=== PATIENT | female | born 1945 | race Two or more races ===

== ENCOUNTER 2017-10-25 08:55 | Outpatient (CLI) | payer MEDICARE, MEDICAID ==
[2017-10-25] MEDS ORDERED: ETHYL CHLORIDE SPRAY 1 EA BOTTLE TP ONE (10:30)
[2017-10-25] MEDS ORDERED: PHENOL TP ONE (10:30)
== END 2017-10-25 23:59 | disposition home or self-care (01) ==
LOC: WOU 08:55
PROVIDERS: ATTEND Podiatrist Foot & Ankle Surgery
DX: L60.0 Ingrowing nail (principal); M79.671 Pain in right foot; L60.3 Nail dystrophy; Z96.653 Presence of artificial knee joint, bilateral
CPT/HCPCS: 11750; A6402 ×2; J3490; Z7610

== ENCOUNTER 2017-10-26 10:14 | Outpatient (CLI) | payer MEDICARE, MEDICAID | END 2017-10-26 23:59 | disposition home or self-care (01) | LOC: RAD 10:14 | PROVIDERS: ATTEND Podiatrist Foot & Ankle Surgery | DX: M21.6X1 Other acquired deformities of right foot (principal); M19.071 Primary osteoarthritis, right ankle and foot | CPT/HCPCS: 73630-TC ==

== ENCOUNTER 2017-11-01 10:59 | Outpatient (CLI) | payer MEDICARE, MEDICAID | END 2017-11-01 23:59 | disposition home or self-care (01) | LOC: WOU 10:59 | PROVIDERS: ATTEND Podiatrist Foot & Ankle Surgery | DX: Z09 Encounter for follow-up examination after completed treatment for conditions other than malignant neoplasm (principal); L60.3 Nail dystrophy; M79.671 Pain in right foot | CPT/HCPCS: A6402; G0463; Z7610 ==

== ENCOUNTER 2017-11-01 11:52 | Outpatient (CLI) | payer MEDICARE, MEDICAID | END 2017-11-01 23:59 | disposition home or self-care (01) | LOC: WOU 11:52 | PROVIDERS: ATTEND Podiatrist Foot & Ankle Surgery | DX: L60.3 Nail dystrophy (principal); M19.071 Primary osteoarthritis, right ankle and foot; M79.671 Pain in right foot; Z96.653 Presence of artificial knee joint, bilateral | CPT/HCPCS: G0463 ==

== ENCOUNTER 2017-11-02 09:46 | Outpatient (CLI) | payer MEDICARE, MEDICAID ==
[2017-11-02] MEDS ORDERED: IOHEXOL-350 100 ML VIAL IV ONE (10:19)
[2017-11-02] MEDS ORDERED: IV NS 0.9% 250 ML IV ONE (10:19)
[2017-11-02] MEDS ORDERED: CT SWABBABLE VALVE TRANS SET 1 EA INFUS.SET MC ONE (10:19)
== END 2017-11-02 23:59 | disposition home or self-care (01) ==
LOC: CT 09:46
PROVIDERS: ATTEND Podiatrist Foot & Ankle Surgery
DX: M19.071 Primary osteoarthritis, right ankle and foot (principal); M79.89 Other specified soft tissue disorders
CPT/HCPCS: 73701; J7050; Q9967

== ENCOUNTER 2017-11-24 11:09 | Outpatient (CLI) | payer MEDICARE, MEDICAID | END 2017-11-24 23:59 | disposition home or self-care (01) | LOC: WOU 11:09 | PROVIDERS: ATTEND Podiatrist Foot & Ankle Surgery | DX: M67.471 Ganglion, right ankle and foot (principal); L60.3 Nail dystrophy; M79.672 Pain in left foot; L60.2 Onychogryphosis; Z96.653 Presence of artificial knee joint, bilateral; M25.871 Other specified joint disorders, right ankle and foot | CPT/HCPCS: G0463; Z7610 ==

== ENCOUNTER 2017-12-06 09:01 | Outpatient (CLI) | payer MEDICARE, MEDICAID ==
[2017-12-06 10:17] LABS: CALCIUM, SERUM 8.4 mg/dL (8.5-10.1); CARBON DIOXIDE 29 mmol/L (21-32); CHLORIDE 107 mmol/L (98-107); CREATININE 0.8 mg/dL (0.6-1.3); GLUCOSE 99 mg/dL (74-106); POTASSIUM 4.3 mmol/L (3.5-5.1); SODIUM SERUM 142 mmol/L (136-145); UREA NITROGEN, BLOOD 16 mg/dL (7-18)
[2017-12-06 10:22] LABS: BASOPHILS % (AUTO) 0.6 % (0.0-2.0); EOSINOPHILS % (AUTO) 3.4 % (0.0-6.0); HEMATOCRIT 40 % (33-45); HEMOGLOBIN 12.5 g/dL (11.5-14.8); LYMPHOCYTES # (AUTO) 1.1 /CMM (0.8-4.8); LYMPHOCYTES % (AUTO) 25.6 % (20.0-44.0); MEAN CORPUSCULAR HEMOGLOBIN 29 PG (26.0-33.0); MEAN CORPUSCULAR HGB CONC 31 g/dl (31.0-36.0); MEAN CORPUSCULAR VOLUME 92 fL (82-100); MONOCYTES # (AUTO) 0.3 /CMM (0.1-1.30); MONOCYTES % (AUTO) 7.9 % (2.0-12.0); NEUTROPHILS # (AUTO) 2.7 /CMM (1.8-8.9); NEUTROPHILS % (AUTO) 62.5 % (43.0-81.0); PLATELET COUNT (AUTO) 273 /CMM (150-450); RDW COEFFICIENT OF VARIATION 13.9 (11.5-15.0); RED BLOOD CELL COUNT(AUTO) 4.35 MIL/uL (4.0-5.2); WHITE BLOOD COUNT (AUTO) 4.3 K/uL (4.3-11.0)
[2017-12-06 10:27] LABS: INR 0.93 (0.87-1.13)
== END 2017-12-06 23:59 | disposition home or self-care (01) ==
LOC: LAB 09:01
PROVIDERS: ATTEND Podiatrist Foot & Ankle Surgery
DX: Z01.818 Encounter for other preprocedural examination (principal); J98.11 Atelectasis; I70.0 Atherosclerosis of aorta; M67.421 Ganglion, right elbow
CPT/HCPCS: 36415; 71046; 80048-TC; 85025-TC; 85610-TC; 85730-TC

== ENCOUNTER 2017-12-16 05:32 | Inpatient (IN) | payer MEDICARE, MEDICAID ==
[2017-12-16] VITALS (9 sets, daily range): BP systolic 115–151; BP diastolic 59–71
[~2017-12-16] VITALS: Ht 160 cm; Wt 108.9 kg
[2017-12-16] MEDS ORDERED: ANESTHESIA TRAY IN PYXIS 1 EA TRAY MC ONE (07:03)
[2017-12-16] MEDS ORDERED: BUPIVACAINE MPF 0.5% W/EPI INJ 30 ML VIAL ONE (07:04)
[2017-12-16] MEDS ORDERED: LIDOCAINE 1% INJ 50 ML MDV IJ ONE (07:04)
--- NOTE | 2017-12-16 07:52 | NUR ---
MS RN OPENING NOTES RECEIVED REPORT FROM [employer] NURSE BIBI THAT PT IS IN THE O.R. UNDERGOING SURGERY FOR HER RIGHT FOOT GANGLION CYST.
--- NOTE | 2017-12-16 09:22 | NUR ---
RN NOTES PATIENT RETURNED FROM SURGERY VIA HER BED AT 0915 S/P RIGHT FOOT SOFT TISSUE MASS EXCISION BY GERTRUDE MIRANDA. PT IS AWAKE ALERT AND ORIENTED X4. VERBALLY RESPONSIVE WITH NO C/O PAIN OR DISCOMFORTS VOICED ON HER OPERATIVE SITE. . V/S CHECKED: BP 115/62, HR 73, R 18, T 97.8F AND SP02 97% ON ROOM AIR. PT WITH DRESSING IN PLACE TO RIGHT FOOT REINFORCED WITH GUERITA BANDAGE CLEAN AND DRY WITH NO ACTIVE BLEEDING NOTED. POST OP SHOES IN PLACE. MD ORDERED REGULAR DIET, RLE WBAT. PT CAN BE DISCHARGED HOME TODAY WHEN STABLE PER PROTOCOL. ORDERED F/U CLINIC IN 1 WEEK POST D/C, TEL # [phone]. PT RIGHT NOW IN STABLE CONDITION. ALL SAFETY MEASURES KEPT IN PLACE. CALL LIGHT IN REACH. WILL CONTINUE TO MONITOR PT ACCORDINGLY.
[2017-12-16] MEDS ORDERED: FOLI1TAB16 PO (10:11)
[2017-12-16] MEDS ORDERED: VITA1TAB56 PO (10:11)
[2017-12-16] MEDS ORDERED: ATOR10TA PO (10:11)
[2017-12-16] MEDS ORDERED: LINA290C PO (10:11)
[2017-12-16] MEDS ORDERED: TAPE75TA2 PO (10:11)
[2017-12-16] MEDS ORDERED: DULO60CA45 PO (10:11)
[2017-12-16] MEDS ORDERED: CYAN100096 PO (10:11)
[2017-12-16] MEDS ORDERED: LIDO5CRE18 TP (10:11)
[2017-12-16] MEDS ORDERED: LOSA50TA21 PO (10:11)
[2017-12-16] MEDS ORDERED: CYCL30DR EACHEYE (10:11)
[2017-12-16] MEDS ORDERED: MAGN64TA9 PO (10:11)
[2017-12-16] MEDS ORDERED: METH2.5T14 PO (10:11)
[2017-12-16] MEDS ORDERED: HYDR12.55 PO (10:11)
[2017-12-16] MEDS ORDERED: OLOP2.5D EACHEYE (10:11)
[2017-12-16] MEDS ORDERED: CHOL100044 PO (10:11)
--- NOTE | 2017-12-16 14:01 | NUR ---
RN DISCHARGED NOTES PATIENT DISCHARGED HOME IN STABLE CONDITION. A/O X4, SAME ABLE TO MAKE NEEDS KNOWN. ALL NEEDS AND CARE ATTENDED WELL. PT S/P RIGHT FOOT SOFT TISSUE MASS EXCISION, DRESSING C/D/I. PT WITH NO C/O PAIN AND ABLE TO AMBULATE WITH CANE. V/S MONITORED AND STABLE. IV ACCESS REMOVED WITH NO ACTIVE BLEEDING NOTED. HEALTH TEACHINGS GIVEN TO PT AND VERBALIZED UNDERSTANDING. BELONGINGS CHECKED, COUNTED AND SIGNED FORM. PT LEFT UNIT AT 1330 ACCOMPANIED BY HER SISTER HIRAM GUEVARA. PT REFUSED TO USE WHEELCHAIR AND INSISTED TO WALK WITH CANE GOING DOWN TO THE LOBBY. MD AND CHARGE NURSE AWARE OF DISCHARGE.
== END 2017-12-16 13:15 | disposition home or self-care (01) | DRG 502 ==
LOC: DS 05:32 → MED 05:34
PROVIDERS: ADMIT Podiatrist Foot & Ankle Surgery; ATTEND Podiatrist Foot & Ankle Surgery
PROC: 0JDQ0ZZ Extraction of Right Foot Subcutaneous Tissue and Fascia, Open Approach (ICD-10-PCS; principal; 2017-12-16 07:00)
DX: M67.471 Ganglion, right ankle and foot (principal)
CPT/HCPCS: 87081-TC; 88305-TC; A6402; J0690; J1100; J2704; J3490; Z7610

== ENCOUNTER 2017-12-23 11:04 | Outpatient (CLI) | payer MEDICARE, MEDICAID ==
[~2017-12-23 11:04] MED LIST: ATOR10TA PO; CHOL100044 PO; CYAN100096 PO; CYCL30DR EACHEYE; DULO60CA45 PO; FOLI1TAB16 PO; HYDR12.55 PO; LIDO5CRE18 TP; LINA290C PO; LOSA50TA21 PO; MAGN64TA9 PO; METH2.5T14 PO; OLOP2.5D EACHEYE; TAPE75TA2 PO; VITA1TAB56 PO
== END 2017-12-23 23:59 | disposition home or self-care (01) ==
LOC: WOU 11:04
PROVIDERS: ATTEND Podiatrist Foot & Ankle Surgery
DX: Z48.817 Encounter for surgical aftercare following surgery on the skin and subcutaneous tissue (principal); L60.3 Nail dystrophy; Z96.653 Presence of artificial knee joint, bilateral; M79.671 Pain in right foot
CPT/HCPCS: A6402; G0463; Z7610

== ENCOUNTER 2017-12-30 09:40 | Outpatient (CLI) | payer MEDICARE, MEDICAID | END 2017-12-30 23:59 | disposition home or self-care (01) | LOC: WOU 09:40 | PROVIDERS: ATTEND Podiatrist Foot & Ankle Surgery | DX: Z48.817 Encounter for surgical aftercare following surgery on the skin and subcutaneous tissue (principal); L60.0 Ingrowing nail; L60.3 Nail dystrophy; M79.671 Pain in right foot; Z96.653 Presence of artificial knee joint, bilateral | CPT/HCPCS: 11730; A6402; J3490; Z7610 ==

== ENCOUNTER 2018-03-28 10:15 | Outpatient (CLI) | payer MEDICARE, MEDICAID ==
[~2018-03-28 10:15] MED LIST changes: -LOSA50TA21 PO; +LOSA50TA39 PO
== END 2018-03-28 23:59 | disposition home or self-care (01) ==
LOC: WOU 10:15
PROVIDERS: ATTEND Podiatrist Foot & Ankle Surgery
DX: L60.3 Nail dystrophy (principal); L60.0 Ingrowing nail; B35.3 Tinea pedis; M79.671 Pain in right foot; M79.672 Pain in left foot; Z96.653 Presence of artificial knee joint, bilateral; Z88.6 Allergy status to analgesic agent
CPT/HCPCS: G0463; Z7610

== ENCOUNTER 2018-08-25 08:15 | Outpatient (CLI) | payer MEDICARE, MEDICAID | END 2018-08-25 23:59 | disposition home or self-care (01) | LOC: WOU 08:15 | PROVIDERS: ATTEND Podiatrist Foot & Ankle Surgery | DX: B35.1 Tinea unguium (principal); B35.3 Tinea pedis; M79.671 Pain in right foot; M79.672 Pain in left foot; L60.3 Nail dystrophy; L60.0 Ingrowing nail | CPT/HCPCS: G0463 ==